=== PATIENT | male | born 1990 | race Caucasian/White ===

== ENCOUNTER 2023-05-12 19:36 | Emergency (ER) | payer OTHER ==
[~2023-05-12] VITALS: Ht 177.8 cm; Wt 90.7 kg
[~2023-05-12 19:36] MED LIST: DAYPRO600 M1 PO; MOTRIN800 MG PO; ROBAXIN750 MG PO; TRAMADOL HCL50 MG PO; TRIMOX,POLYMOX250 MG PO
[2023-05-12] MEDS ORDERED: Motrin,Rufen800 MG PO (19:49)
[2023-05-12] MEDS ORDERED: PENICILLIN VK500 MG PO (19:49)
== END 2023-05-12 20:07 | disposition home or self-care (01) ==
LOC: ED 19:36
DX: S02.5XXA Fracture of tooth (traumatic), initial encounter for closed fracture (principal); K04.7 Periapical abscess without sinus; K02.9 Dental caries, unspecified; Z98.890 Other specified postprocedural states; X58.XXXA Exposure to other specified factors, initial encounter; Y93.89 Activity, other specified; Y92.89 Other specified places as the place of occurrence of the external cause; Y99.8 Other external cause status

== ENCOUNTER 2024-01-29 21:40 | Emergency (ER) | payer OTHER ==
[~2024-01-29] VITALS: Ht 180.3 cm; Wt 93.0 kg
[~2024-01-29 21:40] MED LIST changes: +Motrin,Rufen800 MG PO; +PENICILLIN VK500 MG PO
[2024-01-29] MEDS ORDERED: methylPREDNISolone sod succ 125 MG VIAL IM ONE (22:50)
[2024-01-29] MEDS ORDERED: ZITHROMAX250 MG PO (22:53)
[2024-01-29] MEDS ORDERED: PREDNISONE20 M1 PO (22:53)
== END 2024-01-29 23:01 | disposition home or self-care (01) ==
LOC: ED 21:40
DX: B34.9 Viral infection, unspecified (principal); F90.9 Attention-deficit hyperactivity disorder, unspecified type; Z98.890 Other specified postprocedural states

== ENCOUNTER 2024-11-09 15:54 | Emergency (ER) | payer SELFPAY ==
[~2024-11-09] VITALS: Wt 90.7 kg
[~2024-11-09 15:54] MED LIST changes: +PREDNISONE20 M1 PO; +ZITHROMAX250 MG PO
== END 2024-11-09 17:27 | disposition home or self-care (01) ==
LOC: ED 15:54
DX: T59.3X1A Toxic effect of lacrimogenic gas, accidental (unintentional), initial encounter (principal); Z88.0 Allergy status to penicillin; Z88.1 Allergy status to other antibiotic agents; Z91.030 Bee allergy status; Y92.89 Other specified places as the place of occurrence of the external cause